=== PATIENT | female | born 1965 | race Caucasian/White ===

== ENCOUNTER → 2016-09-04 | Outpatient (CLI) | payer OTHER ==
[~2016-09-04] MED LIST: ACET-1256 PO; ACETTAB14 PO; ANAS1TAB6 PO; ATOR-22 PO; BRIO INH; CALC600T9 PO; CETI10TA84 PO; CLR10 PO; FLUT0.15 NAE; MISCCAP80 PO; OXYC1TAB3 PO; PANT40TA PO
--- NOTE | 2016-09-04 15:44 | DIAGNOSTIC IMAGING REPORT ---
SINUS CT CT DOSE: 305.90 mGycm HISTORY: Sinusitis CHRONIC SINUSITIS TECHNIQUE: Multiaxial CT images of the paranasal sinuses were performed and reformatted in the coronal plane without the use of contrast. COMPARISON: 09/21/2014 FINDINGS: Moderate mucosal thickening of the maxillary sinuses. There is been interval ethmoidectomy. The mastoid air cells are clear. Appears to been placement of bilateral antral windows. The right antral window and ostiomeatal units are occluded. There is significant narrowing of the left. Moderate mucosal thickening of the maxillary sinuses. Frontal sinuses are clear as are the sphenoid sinuses. The nasal septum is midline. The orbits are unremarkable. IMPRESSION: 1. Apparent interval ethmoidectomy and bilateral antral window placement. 2. The current study demonstrates moderate mucosal thickening of the maxillary sinuses with soft tissue occlusion of the right antral window and ostiomeatal unit, and soft tissue narrowing of the left ostiomeatal complex. Electronically signed by: Brannon Avalos M.D. 09/04/2016 3:43 PM Dictated Date/Time: 09/04/2016 3:37 PM
== END | disposition home or self-care (01) ==
LOC: C.CTS 15:19
PROVIDERS: ATTEND Otolaryngology
DX: J32.9 Chronic sinusitis, unspecified (principal)

== ENCOUNTER 2016-10-26 05:19 | Day surgery (SDC) | payer OTHER ==
[2016-10-19 10:54] VITALS: BMI 22.0
--- NOTE | 2016-10-19 11:39 | PAT Medication Instructions ---
Service Date Oct 19, 2016. Current Home Medication List Acetaminophen (Tylenol), 1,500 MG PO PRN Acetaminophen-Caffeine (Excedrin Tension Headache), 2 TAB PO PRN Anastrozole (Anastrozole), 1 TAB PO QAM Atorvastatin (Lipitor), 20 MG PO QAM Calcium Carbonate-Vitamin D (Calcium + D), 1 TAB PO BID Cetirizine (Zyrtec), 10 MG PO QAM Fluticasone Propionate (Nasal) (Flonase Allergy Relief), 2 SPRAYS HELGA PRN Oxycodone Ir (Roxicodone Ir), 5 MG PO Q6H PRN for Pain Pantoprazole (Protonix), 40 MG PO QAM Probiotic Product (Probiotic), 1 TAB PO QAM Medication Instructions For Your Scheduled Surgery Acetaminophen-Caffeine (Excedrin Tension Headache), 2 TAB PO PRN (check with surgeon for instructions) Anastrozole (Anastrozole), 1 TAB PO QAM (check with surgeon for instructions) - Hold the following medications the morning of surgery: Probiotic Product (Probiotic), 1 TAB PO QAM Cetirizine (Zyrtec), 10 MG PO QAM Calcium Carbonate-Vitamin D (Calcium + D), 1 TAB PO BID - Take the following medications the morning of surgery with a sip of water: Acetaminophen (Tylenol), 1,500 MG PO PRN Atorvastatin (Lipitor), 20 MG PO QAM Pantoprazole (Protonix), 40 MG PO QAM Fluticasone Propionate (Nasal) (Flonase Allergy Relief), 2 SPRAYS HELGA PRN Oxycodone Ir (Roxicodone Ir), 5 MG PO Q6H PRN for Pain (okay to take up to 4 hours prior to surgery if needed) - Take the following medications as scheduled the night before surgery: Acetaminophen (Tylenol), 1,500 MG PO PRN Calcium Carbonate-Vitamin D (Calcium + D), 1 TAB PO BID Fluticasone Propionate (Nasal) (Flonase Allergy Relief), 2 SPRAYS HELGA PRN Oxycodone Ir (Roxicodone Ir), 5 MG PO Q6H PRN for Pain If you have any questions please call us at [phone] (Mariola Boyd PA-C) or [phone] or [phone]
[2016-10-19 12:04] LABS: BASO % 0.3 %; BASO ABS # 0.02 K/uL (0-0.2); COMPLETE YES; EOS % 2.9 %; HEMATOCRIT 42.3 % (37-47); IG% 0.2 %; LYMPH % 23.5 %; LYMPH ABS # 1.45 K/uL (1.2-3.4); MEAN CELL VOLUME 90.6 fL (80-100); MEAN CORPUSCULAR HEMOGLOBIN 30.4 pg (25-34); MEAN CORPUSCULAR HGB CONC 33.6 g/dl (32-36); MEAN PLATELET VOLUME 9.4 fL (7.4-10.4); MONO % 5.8 %; NEUT % 67.3 %; PLATELET COUNT 277 K/uL (130-400); RED BLOOD COUNT 4.67 M/uL (4.2-5.4); WHITE BLOOD COUNT 6.17 K/uL (4.8-10.8)
[2016-10-19 13:13] LABS: BUN/CREATININE RATIO 8.2 (10-20); CALCIUM 9.5 mg/dl (8.5-10.1); CREATININE 0.59 mg/dl (0.60-1.20)
--- NOTE | 2016-10-25 21:13 | HISTORY & PHYSICAL EXAMINATION ---
DATE OF ADMISSION: 10/26/2016 DIAGNOSIS: Chronic sinusitis. HISTORY: This 51-year-old lady presented with persistent sinusitis with opacified sinuses on CT scan. She requested definitive treatment because of increasing infections and headaches. 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 PREVIOUS SURGERIES: Knee surgery, back surgery, double mastectomy and tonsillectomy. MEDICATIONS: Include pantoprazole, loratadine, calcium. ALLERGIES: None known. FAMILY HISTORY: Negative. SOCIAL HISTORY: Negative. REVIEW OF SYSTEMS: Otherwise negative. PHYSICAL EXAMINATION: GENERAL: WNWD female in no acute distress. HEAD: Normocephalic. EYES: Normal. EARS: Tympanic membranes intact. NOSE: Nasal passages show swollen turbinates and mucopurulent drainage. THROAT: Oropharynx shows status post radiation with erythema. The epiglottis is now normal except for some edema of the larynx. NECK: Supple, no adenopathy. HEART: RRR. LUNGS: Clear. ABDOMEN: Soft. GENITOURINARY: Deferred. EXTREMITIES: Full range of motion. IMPRESSION: Chronic sinusitis. PLAN: For endoscopic sinus surgery.
[~2016-10-26] VITALS: Ht 167.6 cm; Wt 63.7 kg
[~2016-10-26 05:19] MED LIST changes: -ACETTAB14 PO; +ACETTAB15 PO; -BRIO INH; -CLR10 PO
[2016-10-26] MEDS ORDERED: BRIO INH (05:44)
[2016-10-26 05:48] VITALS: BP 129/86; PULSE 81; TEMP 36.8; O2SAT 95; Ht 167.6 cm; Wt 63.7 kg
[2016-10-26] MEDS ORDERED: CEFAZOLIN 1000MG/55 ML D5W IV SCH (06:00)
[2016-10-26] MEDS ORDERED: LACTATED RINGER'S 1000ML 1,000 ML IV SCH (06:00)
--- NOTE | 2016-10-26 06:54 | History & Physical Bridge Note ---
H&P Re-Evaluation Bridge Note: I have examined the patient, reviewed the History & Physical and in the interval since the performance of the History & Physical I have noted the following changes of clinical significance: No changes noted
[2016-10-26] MEDS ORDERED: GELATIN SPONGE 12-7MM ONE (06:59)
[2016-10-26] MEDS ORDERED: TRIAMCINOLONE ACET 40 MG/ML VIAL ONE (07:00)
[2016-10-26] MEDS ORDERED: LIDOCAINE 4% W/AFRIN NASAL SOLN 4ML ONE (07:00)
[2016-10-26] MEDS ORDERED: BACITRACIN OINT 15 GM TUBE ONE (07:00)
[2016-10-26] MEDS ORDERED: EpINEphrine INJ 1MG/ML AMP 1 MG/ML AMP ONE (07:01)
[2016-10-26] MEDS ORDERED: LIDOCAINE HCL 2% 2 ML VIAL (20MG/ML) ONE (07:06)
[2016-10-26] MEDS ORDERED: ROCURONIUM BROMIDE 10 MG/ML 5 ML VIAL ONE (07:06)
[2016-10-26] MEDS ORDERED: DEXAMETHASONE SOD INJ 4 MG/ML VIAL ONE (07:06)
[2016-10-26] MEDS ORDERED: ONDANSETRON INJ 2 MG/ML 2 ML VIAL ONE (07:06)
[2016-10-26] MEDS ORDERED: MIDAZOLAM HCL 1 MG/ML 2ML VIAL ONE (07:06)
[2016-10-26] MEDS ORDERED: PROPOFOL IV EMULSION 10 MG/ML 20 ML VIAL IV ONE (07:06)
[2016-10-26] MEDS ORDERED: GLYCOPYRROLATE INJ 0.2 MG/ML VIAL ONE (07:06)
[2016-10-26] MEDS ORDERED: NEOSTIGMINE METHYLSULFATE 5 MG/5 ML SYR ONE (07:06)
[2016-10-26] MEDS ORDERED: FENTANYL CITRATE INJ 50 MCG/1 ML 2 ML VIAL ONE ×2 (07:07→07:16)
[2016-10-26 07:10] VITALS: PULSE 78; O2SAT 94
[2016-10-26] MEDS ORDERED: HYDROmorphone INJ 2 MG/ML SYR/VIAL ONE (07:17)
[2016-10-26] MEDS ORDERED: ALBUT/IPRATROP 3MG/0.5MG NEB 3 ML VIAL INH STA (07:21)
[2016-10-26] MEDS ORDERED: EpHEDrine SULFATE INJ 50 MG/ML AMP IV PRN (07:30)
[2016-10-26] MEDS ORDERED: FENTANYL CITRATE INJ 50 MCG/1 ML 2 ML VIAL IV PRN (07:30)
[2016-10-26] MEDS ORDERED: ONDANSETRON INJ 2 MG/ML 2 ML VIAL IV PRN (07:30)
[2016-10-26] MEDS ORDERED: ATROPINE SULFATE 0.1 MG/ML 5ML SYR IV PRN (07:30)
[2016-10-26] MEDS ORDERED: SODIUM CHLORIDE 0.9% INJ 10 ML VIAL ONE (08:11)
[2016-10-26] MEDS ORDERED: EpHEDrine SULFATE 50MG/5ML SYR ONE (08:12)
[2016-10-26] MEDS ORDERED: SODIUM CHLORIDE 0.9% 1000ML 1,000 ML IV SCH (09:03)
[2016-10-26] MEDS ORDERED: OXYC1TAB3 PO (09:04)
--- NOTE | 2016-10-26 09:05 | Discharge Instructions-SurgCtr ---
Discharge Instructions Date of Service Oct 26, 2016. Visit Reason for Visit: Chronic Sinusitis Discharge Discharge Diagnosis / Problem: same Discharge Goals Goal(s): Improve disease control Activity Recommendations Activity Limitations: resume your previous activity Anesthesia . Post Anesthesia Instructions: If you have had General Anesthesia or IV Sedation: * Do not drive today. * Resume driving when surgeon permits. * Do not make important decisions or sign legal documents today. * Call surgeon for: 1. Temperature elevations greater than 101 degrees F. 2. Uncontrollable pain. 3. Excessive bleeding. 4. Persistent nausea and vomiting. 5. Medication intolerance (nausea, vomiting or rash). * For nausea and vomiting use only clear liquids such as: tea, soda, bouillon until nausea subsides, then gradually increase diet as tolerated. * If you have any concerns or questions, call your surgeon's office. If physician is unavailable and it is an emergency, call 911 or go to the nearest emergency room. . Instructions / Follow-Up Instructions / Follow-Up ACTIVITY RECOMMENDATIONS: * Being up and around is good, but no strenuous activity, heavy lifting or physical exertion for one week. * Keep your head elevated 30 degrees when lying down or sleeping. * Do not blow your nose for 48 hours, sniff back instead. * Avoid hot showers. OVER THE COUNTER MEDICATIONS: * You may use Tylenol * Avoid aspirin or aspirin containing products, e.g. as they may increase bleeding. SPECIAL CARE INSTRUCTIONS: * Expect to have bloody drainage from your nose and/or down your throat for one to three days. Change drip pad as needed. * Begin irrigating your nose with saline solution today, at least six to ten times per day and sniff back to help remove old clots or crust. * You may experience nasal and facial congestion, pain and pressure, this is normal. * Please call with any significant and/or progressive pain, redness, swelling around the eyes, visual changes, fever of 101.5 degrees F, active bleeding or any problems or concerns. * If active bleeding occurs, spray the nose three times at one minute intervals with Afrin spray and call or cell phone: . If unable to reach the doctor, go to the nearest Emergency Department. Special Diet: * Avoid extremely hot fluids. FOLLOW UP VISIT: Follow-up Visit with Dr. Ignacio If not already scheduled, please call to schedule. Diet Recommendations Home Diet: no limitations Procedures Procedures Performed: Endoscopic Right and Left Frontal, Right and Left Sphenoid, Total Ethmoid, Right and Left Maxillary Sinusotomies Pending Studies Studies pending at discharge: no Medical Emergencies . Who to Call and When: Medical Emergencies: If at any time you feel your situation is an emergency, please call 911 immediately. . Non-Emergent Contact Non-Emergency issues call your: Primary Care Provider . . "Provider Documentation" section prepared by Regina Ignacio. [facility] Search Results: no issues identified
[2016-10-26] MEDS ORDERED: OXYCODONE/ACETAMINOPHEN 5-325 TAB PO PRN (09:15)
[2016-10-26 09:45] VITALS: BP 129/85; PULSE 66; TEMP 36.4; O2SAT 92
[2016-10-26 10:15] VITALS: BP 144/86; PULSE 65; TEMP 36.4; O2SAT 92
[2016-10-26] MEDS ORDERED: LIDOCAINE/EPINEPHRINE 2% 1:200,000 20 ML SDV INJ ONE (10:19)
--- NOTE | 2016-10-26 10:30 | Anesthesiology Progress Note ---
Anesthesia Post Op Note Date & Time Oct 26, 2016 at 10:29 Vital Signs Pain Intensity: 0 Vital Signs Past 12 Hours Date Time Temp Pulse Resp B/P Pulse Ox O2 Delivery O2 Flow Rate FiO2 10/26/16 10:15 36.4 65 20 144/86 92 Room Air 0 10/26/16 09:45 36.4 66 20 129/85 92 Room Air 0 10/26/16 09:40 77 20 142/82 92 Room Air 10/26/16 09:35 141/90 10/26/16 09:35 36.4 77 20 141/90 92 Room Air 10/26/16 09:34 60 10 10/26/16 09:34 59 10 92 10/26/16 09:30 134/88 10/26/16 09:29 61 12 10/26/16 09:29 62 12 95 10/26/16 09:25 148/90 10/26/16 09:25 61 14 148/90 96 Room Air 10/26/16 09:24 67 21 10/26/16 09:24 68 21 96 10/26/16 09:20 150/91 10/26/16 09:19 63 14 100 10/26/16 09:19 62 14 10/26/16 09:15 155/93 10/26/16 09:15 60 16 155/93 100 Mask 10 10/26/16 09:14 63 19 100 10/26/16 09:14 63 19 10/26/16 09:10 155/95 10/26/16 09:09 60 15 10/26/16 09:09 60 15 100 10/26/16 09:05 158/95 10/26/16 09:05 65 19 158/95 100 Mask 10 10/26/16 09:04 60 15 100 10/26/16 09:04 60 15 10/26/16 09:00 161/104 10/26/16 08:59 74 17 169/105 100 10/26/16 08:59 75 17 10/26/16 08:59 36.0 78 16 169/105 100 Mask 10 10/26/16 07:10 78 16 94 Room Air 10/26/16 05:48 36.8 81 18 129/86 95 Room Air Notes Mental Status: alert / awake / arousable, participated in evaluation Pt Amnestic to Procedure: Yes Nausea / Vomiting: adequately controlled Pain: adequately controlled Airway Patency, RR, SpO2: stable & adequate BP & HR: stable & adequate Hydration State: stable & adequate Anesthetic Complications: no major complications apparent
--- NOTE | 2016-10-26 10:42 | OPERATIVE REPORT ---
DATE OF OPERATION: 10/26/2016 PREOPERATIVE DIAGNOSIS: Chronic sinusitis. POSTOPERATIVE DIAGNOSIS: Same. PROCEDURES: Right and left frontal, right and left sphenoid, right and left total ethmoid and right and left maxillary sinus antrostomies. SURGEON: Regina Ignacio MD ANESTHESIA: General endotracheal. COMPLICATIONS: None. BLOOD LOSS: 20 mL. HISTORY OF PRESENT ILLNESS: A 51-year-old with significant recurrent chronic sinusitis. She did have sinus surgery 4 years ago by me but due to the previous radiation and continued tobacco use, she developed a chronic sinusitis with opacified maxillary sinuses and ethmoid sinuses and also some polypoid change at the anterior face of the sphenoids. DESCRIPTION OF PROCEDURE: The patient was brought to the recovery room and placed in supine position. General endotracheal anesthesia was induced, prepped with Betadine paint and draped in usual sterile manner. The nose was decongested using cottonoids with the topical solution of 4 mL of 4% Xylocaine with 1 mL of epinephrine. Injection of 2% Xylocaine 1:100,000 strength of epinephrine was also used. The left maxillary sinus cannulated with guidewire and dilated using the 6 mm balloon. The guidewire was removed and the sinus was irrigated clean with 100 mL of saline. The left nasofrontal duct was cannulated with the guidewire with Brain[employer] computer guidance and dilated using the 6 mm balloon. The guidewire was left in place as a marker as the catheter was withdrawn. The guidewire was used as a guide. The shaver was coupled with the Yodo1 device. Frontal sinusotomy was performed by removing the scar tissue at the superior end of the middle meatus opening up the residual anterior wall of the agger nasi cell and then opening up the residual posterior wall of the agger nasi cell, opening up the posterior superior wall of the agger nasi cell with widely opening up the nasofrontal duct and this was redilated with the 6 mm balloon. At this point, total ethmoidectomy was performed removing the adhesions and scar tissue into the posterior ethmoids, removing the adhesion at the maxillary ostia, widely opening up the maxillary ostia to its natural opening to its dilated opening, and then exonerating all the anterior and all the posterior ethmoid air cells up to the face of the sphenoid. The sphenoid ostia was opened using the shaver coupled with BrainLAB device, superiorly and laterally opening up the sphenoid sinus. The right frontal sinusotomy, total ethmoidectomy, sphenoidotomy, and maxillary sinus antrostomy was performed in a similar manner. The Propel stents were placed. The one mini stent was placed in the left nasofrontal duct and then 2 regular stents in each middle meatus. The patient tolerated the procedure well and was taken to recovery area in satisfactory condition. I attest to the content of the Intraoperative Record and any orders documented therein. Any exceptio ns are noted below.
[2016-10-26 10:45] VITALS: BP 141/83; PULSE 65; O2SAT 92
== END 2016-10-26 10:53 | disposition home or self-care (01) ==
LOC: C.ACU 05:19
PROVIDERS: ATTEND Otolaryngology
DX: J32.9 Chronic sinusitis, unspecified (principal)